=== PATIENT | female | born 1975 | race Caucasian/White ===

== ENCOUNTER → 2024-05-23 14:25 | Outpatient (REF) | payer BC, SELFPAY | LOC: HWRAD 14:25 | PROVIDERS: ATTENDING PHYSICIAN Nurse Practitioner Family | DX: R30.0 Dysuria (principal); R31.9 Hematuria, unspecified | CPT/HCPCS: 74176 ==

== ENCOUNTER → 2024-06-19 07:33 | Outpatient (REF) | payer BC, SELFPAY | LOC: HWRAD 07:33 | PROVIDERS: ATTENDING PHYSICIAN Nurse Practitioner Family | DX: N85.2 Hypertrophy of uterus (principal) | CPT/HCPCS: 76830; 76856 ==